=== PATIENT | male | born 1995 | race Caucasian/White ===

== ENCOUNTER 2016-12-30 22:59 | Emergency (ER) | payer SELFPAY ==
[2016-12-30 23:06] VITALS: BMI 23.6
[2016-12-30 23:15] VITALS: BP 138/81; PULSE 71; RESP 16; TEMP 98.1; O2SAT 98
--- NOTE | 2016-12-30 23:34 | ED PDOC ---
Arrival/HPI - General Chief Complaint: GI Problem Time Seen by Provider: 12/30/16 23:32 Historian: Patient - History of Present Illness Narrative History of Present Illness (Text): 12/30/16 23:38 Bill Ybarra is a 21 year old male who presents to the emergency department complaining of 2 episodes of bloody stool in past 4 days. Patient noticed bight red blood while wiping. Denies constipation, hard stool or straining. Denies any abdominal pain. States he was evaluated 2 years prior in emergency department for similar symptoms. Denies any other complaints at this time. Time/Duration: < week (4 days) Symptom Onset: Gradual Symptom Course: Intermittent Severity Level: Mild Activities at Onset: Light Past Medical History - Provider Review Nursing Documentation Reviewed: Yes - Infectious Disease Hx of Infectious Diseases: None - Tetanus Immunization Tetanus Immunization: Up to Date - Past Medical History Past Medical History: No Previous - Cardiac Hx Cardiac Disorders: No Hx Hypertension: No - Pulmonary Hx Respiratory Disorders: No Hx Tuberculosis: No - Neurological HX Cerebrovascular Accident: No Hx Seizures: No - HEENT Hx HEENT Disorder: No - Renal Hx Renal Disorder: No Hx Kidney Stones: No - Endocrine/Metabolic Hx Endocrine Disorders: No - Hematological/Oncological Hx Blood Disorders: No Hx Cancer: No - Integumentary Hx Dermatological Disorder: No - Musculoskeletal/Rheumatological Hx Musculoskeletal Disorders: No - Gastrointestinal Hx Gastrointestinal Disorders: No - Genitourinary/Gynecological Hx Genitourinary Disorders: No Hx Sexually Transmitted Diseases: No - Psychiatric Hx Substance Use: No - Past Surgical History Past Surgical History: No Previous - Anesthesia Hx Anesthesia: No Hx Anesthesia Reactions: No Hx Malignant Hyperthermia: No - Suicidal Assessment Feels Threatened In Home Enviroment: No Family/Social History - Physician Review Nursing Documentation Reviewed: Yes Family/Social History: No Known Family HX Smoking Status: Never Smoked Hx Alcohol Use: No Hx Substance Use: No Hx Substance Use Treatment: No Allergies/Home Meds Allergies/Adverse Reactions: Allergies No Known Allergies Allergy (Verified 03/24/15 20:15) Physical Exam - Physical Exam Narrative Physical Exam (Text): - Review of Systems Constitutional: Normal. absent: Fatigue, Weight Change, Fevers Eyes: Normal ENT: Normal Respiratory: Normal absent: SOB, Cough, Sputum Cardiovascular: Normal absent: Chest pain, Palpitations, Syncope Gastrointestinal: Present: Blood in stool. absent: Abdominal pain, Diarrhea, Nausea, Vomiting Genitourinary: Normal. absent: Dysuria, Frequency, Hematuria Musculoskeletal: Normal. absent: Arthralgias, Back Pain, Neck Pain Skin: Normal Neurological: Normal absent: Focal Weakness Endocrine: Normal Hemo/Lymphatic: Normal Psychiatric: Normal - Physical exam Patient appears age appropriate, speaking full sentences without difficulty - Systems Exam Head: Present: Atraumatic, Normocephalic Pupils: Present: PERRL Extraocular Muscles: Present: EOMI Conjunctiva: Present: Normal Mouth: Present: Moist Mucous Membranes Neck: Present: Normal Range of Motion. No: MIDLINE TENDERNESS, Paraspinal Tenderness Respiratory/Chest: Present: Clear to Auscultation, Good Air Exchange. No: Respiratory Distress, Accessory Muscle Use, Tachypneic Cardiovascular: Present: Regular Rate and Rhythm, Normal S1, S2, Peripheral Pulses Present. No: Murmurs Rectal: Present: External hemorrhoids, scant blood. Absent: Fissures, tenderness. (Witnessed by Cher Case) Abdomen: Present: Normal Bowel Sounds, No: Tenderness, Peritoneal Signs, Rebound, Guarding, Distention Back: Present: Normal Inspection. No: Midline Tenderness, Paraspinal Tenderness Upper Extremity: Present: Normal Inspection. No: Cyanosis, Edema Lower Extremity: Present: Normal Inspection. No: Edema Neurological: Present: GCS=15, Speech Normal, cranial nerves II through XII fully intact with no cerebellar abnormality, neuro-sensory fully intact. No focal neurological deficits. Skin: Present: Warm, Dry, Normal Color. No: Rashes Lymphatic: Present: OX3, NI, NC Psychiatric: Present: Alert, Oriented x 3, Normal Insight, Normal Concentration Vital Signs Reviewed: Yes Vital Signs Temp Pulse Resp BP Pulse Ox 12/30/16 23:05 98.1 F 71 16 138/81 98 Temperature: Afebrile Blood Pressure: Normal Pulse: Regular Respiratory Rate: Normal Appearance: Positive for: Well-Appearing, Non-Toxic, Comfortable Pain Distress: None Mental Status: Positive for: Alert and Oriented X 3 Medical Decision Making ED Course and Treatment: 12/30/16 23:48 Impression: A 21 year old male who presents to the emergency department for evaluation of 2 episodes of bloody stool. On PE, there is a external hemorrhoid , and scant amount of blood. Progress Notes: 12/30/16 23:49 Patient is stable for discharge. He is hemodynamically stable, and denies any weakness, dizziness, feeling lightheaded, SOB/CLARKE or chest pain. I had a long conversation with the patient about the importance of follow up with release engineer for further evaluation. Advised patient to present to emergency department for worsening or new symptoms. Pt states he understands to return to the ER right away for new or worsening symptoms or for inability to f/u with PMD or specialist as instructed. Patient states that he fully agrees with and understands discharge instructions. States that he agrees with the plan and disposition. Verbalized and repeated discharge instructions and plan. I have given the patient opportunity to ask any additional questions. - Scribe Statement The provider has reviewed the documentation as recorded by the Cher Weiner Provider Attestation: All medical record entries made by the Yazminibash were at my direction and personally dictated by me. I have reviewed the chart and agree that the record accurately reflects my personal performance of the history, physical exam, medical decision making, and the department course for this patient. I have also personally directed, reviewed, and agree with the discharge instructions and disposition. Disposition/Present on Arrival - Present on Arrival Any Indicators Present on Arrival: No History of DVT/PE: No History of Uncontrolled Diabetes: No Urinary Catheter: No History of Decub. Ulcer: No History Surgical Site Infection Following: None - Disposition Have Diagnosis and Disposition been Completed?: Yes Diagnosis: Blood in the stool Disposition: HOME/ ROUTINE Disposition Time: 23:34 Patient Plan: Discharge Condition: GOOD Discharge Instructions (ExitCare): Rectal Bleeding (ED) Additional Instructions: PLEASE RETURN TO THE EMERGENCY DEPARTMENT FOR NEW OR WORSENING SYMPTOMS. RETURN RIGHT AWAY IF YOU CANNOT FOLLOW UP WITH YOUR PRIMARY CARE DOCTOR, CLINIC, OR SPECIALIST IN 1-2 DAYS. Referrals: Imtiaz Soriano DO [Staff Provider] - Follow up with primary Emmanuel Costello MD [Medical Doctor] - Follow up with primary
== END 2016-12-31 00:21 | disposition home or self-care (01) ==
LOC: ED 22:59
DX: K92.1 Melena (principal)

== ENCOUNTER 2017-01-17 22:28 | Emergency (ER) | payer SELFPAY ==
[2017-01-17 22:28] VITALS: BMI 23.6
[2017-01-17 23:23] VITALS: BP 127/82; RESP 16
--- NOTE | 2017-01-18 00:14 | ED PDOC ---
Arrival/HPI - General Chief Complaint: ENT Problem Time Seen by Provider: 01/17/17 23:59 Historian: Patient - History of Present Illness Narrative History of Present Illness (Text): 01/18/17 00:09 Bill Ybarra is a 21 year old male who presents to the emergency department complaining of foreign body sensation to the throat for past week. States of discomfort to throat while swallowing. Patient is able to tolerate PO intake without any difficulty. Patient reports he spit up some blood in saliva today. Denies fever, chills, headache, dizziness, chest pain, shortness of breath, nausea, vomiting, diarrhea, or any other complaints at this time. Time/Duration: 1 week Symptom Onset: Gradual Severity Level: Mild Activities at Onset: Light Past Medical History - Provider Review Nursing Documentation Reviewed: Yes - Infectious Disease Hx of Infectious Diseases: None - Tetanus Immunization Tetanus Immunization: Up to Date - Past Medical History Past Medical History: No Previous - Cardiac Hx Cardiac Disorders: No Hx Hypertension: No - Pulmonary Hx Respiratory Disorders: No Hx Tuberculosis: No - Neurological HX Cerebrovascular Accident: No Hx Seizures: No - HEENT Hx HEENT Disorder: No - Renal Hx Renal Disorder: No Hx Kidney Stones: No - Endocrine/Metabolic Hx Endocrine Disorders: No - Hematological/Oncological Hx Blood Disorders: No Hx Cancer: No - Integumentary Hx Dermatological Disorder: No - Musculoskeletal/Rheumatological Hx Musculoskeletal Disorders: No - Gastrointestinal Hx Gastrointestinal Disorders: No - Genitourinary/Gynecological Hx Genitourinary Disorders: No Hx Sexually Transmitted Diseases: No - Psychiatric Hx Substance Use: No - Past Surgical History Past Surgical History: No Previous - Anesthesia Hx Anesthesia: No Hx Anesthesia Reactions: No Hx Malignant Hyperthermia: No - Suicidal Assessment Feels Threatened In Home Enviroment: No Family/Social History - Physician Review Nursing Documentation Reviewed: Yes Family/Social History: No Known Family HX Smoking Status: Never Smoked Hx Alcohol Use: No Hx Substance Use: No Hx Substance Use Treatment: No Allergies/Home Meds Allergies/Adverse Reactions: Allergies No Known Allergies Allergy (Verified 03/24/15 20:15) Home Medications: Home Meds Medication Instructions Recorded Confirmed No Known Home Med 01/17/17 01/17/17 Review of Systems - Physician Review All systems were reviewed & negative as marked: Yes - Review of Systems Constitutional: Normal. absent: Fatigue, Fevers ENT: Other (foreign body sensation to throat ) Respiratory: Normal. absent: SOB, Cough Cardiovascular: Normal. absent: Chest Pain Gastrointestinal: Normal. absent: Abdominal Pain, Diarrhea, Nausea, Vomiting Neurological: Normal. absent: Headache, Dizziness Psychiatric: Normal Physical Exam Vital Signs Reviewed: Yes Vital Signs Temp Pulse Resp BP Pulse Ox 01/18/17 02:03 16 98 01/18/17 02:01 98.6 F 75 16 98 01/17/17 23:23 98.5 F 71 16 127/82 100 Temperature: Afebrile Blood Pressure: Normal Pulse: Regular Respiratory Rate: Normal Appearance: Positive for: Well-Appearing, Non-Toxic, Comfortable Pain Distress: None Mental Status: Positive for: Alert and Oriented X 3 - Systems Exam Head: Present: Atraumatic, Normocephalic Pupils: Present: PERRL Conjunctiva: Present: Normal Mouth: Present: Moist Mucous Membranes Pharnyx: Present: Normal. No: ERYTHEMA, EXUDATE, TONSILS ENLARGED Neck: Present: Normal Range of Motion Respiratory/Chest: Present: Clear to Auscultation, Good Air Exchange. No: Respiratory Distress, Accessory Muscle Use Cardiovascular: Present: Regular Rate and Rhythm, Normal S1, S2. No: Murmurs Abdomen: Present: Normal Bowel Sounds. No: Tenderness, Distention, Peritoneal Signs Upper Extremity: Present: Normal Inspection. No: Cyanosis, Edema Lower Extremity: Present: Normal Inspection. No: Edema Neurological: Present: GCS=15, CN II-XII Intact, Speech Normal, Motor Func Grossly Intact, Normal Sensory Function Skin: Present: Warm, Dry, Normal Color. No: Rashes Psychiatric: Present: Alert, Oriented x 3, Normal Insight, Normal Concentration Medical Decision Making ED Course and Treatment: 01/18/17 00:15 Impression: A 21 year old male who presents to the emergency department complaining of foreign body sensation to throat for past week. Plan: -- CT neck. -- Reassess and disposition Progress Notes: 01/18/17 01:00 CT neck results reviewed: FINDINGS: Limitations: Lack of intravenous contrast. Nasopharynx: Unremarkable. Oropharynx: No significant tonsillar enlargement. Hypopharynx: 0.4 x 0.7 x 0.6 cm soft tissue polypoid lesion along LEFT posterolateral aspect of hypopharynx. Larynx: Unremarkable. Normal epiglottis. Trachea: Unremarkable. Retropharyngeal space: Unremarkable. Submandibular/parotid glands: Glands are normal in size. Thyroid: No enlarged or calcified nodules. Bones/joints: No acute fracture. Soft tissues: No radiopaque foreign bodies. Vasculature: No acute findings. Lymph nodes: No pathologically enlarged lymph nodes. Sinuses: Scattered mild mucosal thickening of ethmoid sinuses. RIGHT maxillary retention cyst. Lung apices: Unremarkable as visualized. IMPRESSION: 1. Soft tissue polyp along hypopharynx. Recommend direct visualization. 2. Incidental/non-acute findings are described above. 01/18/17 01:14 Case discussed with ENT, , who recommends discharge and follow up with him at his office tomorrow morning. Discussed plan with patient who is in agreement. Advised to present to emergency department for worsening symptoms. - RAD Interpretation Radiology Orders: 01/18/17 00:05 NECK SOFT TISSUE W/O CONTRAST [CT] Stat Credit Collections Manager: Radiologist - Yazminibash Statement The provider has reviewed the documentation as recorded by the Cher Weiner Provider Attestation: All medical record entries made by the Cher were at my direction and personally dictated by me. I have reviewed the chart and agree that the record accurately reflects my personal performance of the history, physical exam, medical decision making, and the department course for this patient. I have also personally directed, reviewed, and agree with the discharge instructions and disposition. Disposition/Present on Arrival - Present on Arrival Any Indicators Present on Arrival: No History of DVT/PE: No History of Uncontrolled Diabetes: No Urinary Catheter: No History of Decub. Ulcer: No History Surgical Site Infection Following: None - Disposition Have Diagnosis and Disposition been Completed?: Yes Diagnosis: Throat discomfort, Soft tissue lesion Disposition: HOME/ ROUTINE Disposition Time: 01:37 Patient Plan: Discharge Condition: GOOD Additional Instructions: Follow up with the ear/nose/throat doctor, today. Referrals: Patricio Morse DO [Staff Provider] - Follow up with primary
--- NOTE | 2017-01-18 00:52 | CT ---
EXAM: CT Neck Without Intravenous Contrast CLINICAL HISTORY: 21 years old, male; Signs and symptoms; Dysphagia / difficulty swallowing; Additional info: R/O foreign body left side of throat/neck TECHNIQUE: Axial computed tomography images of the neck without intravenous contrast. This CT exam was performed using one or more of the following dose reduction techniques: automated exposure control, adjustment of the mA and/or kV according to patient size, and/or use of iterative reconstruction technique. Coronal and sagittal reformatted images were created and reviewed. COMPARISON: No relevant prior studies available. FINDINGS: Limitations: Lack of intravenous contrast. Nasopharynx: Unremarkable. Oropharynx: No significant tonsillar enlargement. Hypopharynx: 0.4 x 0.7 x 0.6 cm soft tissue polypoid lesion along LEFT posterolateral aspect of hypopharynx. Larynx: Unremarkable. Normal epiglottis. Trachea: Unremarkable. Retropharyngeal space: Unremarkable. Submandibular/parotid glands: Glands are normal in size. Thyroid: No enlarged or calcified nodules. Bones/joints: No acute fracture. Soft tissues: No radiopaque foreign bodies. Vasculature: No acute findings. Lymph nodes: No pathologically enlarged lymph nodes. Sinuses: Scattered mild mucosal thickening of ethmoid sinuses. RIGHT maxillary retention cyst. Lung apices: Unremarkable as visualized. IMPRESSION: 1. Soft tissue polyp along hypopharynx. Recommend direct visualization. 2. Incidental/non-acute findings are described above.
[2017-01-18 02:02] VITALS: PULSE 75; TEMP 98.6; O2SAT 98
== END 2017-01-18 02:03 | disposition home or self-care (01) ==
LOC: ED 22:28
DX: J39.2 Other diseases of pharynx (principal); R07.0 Pain in throat